=== PATIENT | female | born 1990 | race Caucasian/White ===

== ENCOUNTER 2017-11-20 17:31 | Emergency (ER) | payer OTHER ==
[~2017-11-20] VITALS: Ht 167.6 cm; Wt 97.2 kg
[~2017-11-20 17:31] MED LIST: ADVIL200 MG PO; BENTYL20 MG PO; BRINTELLIX10 MG PO; HYDROCODON-ACE1 EAC7 PO; IBUPROFEN800 MG PO; RITALIN10 MG PO; VALTREX1000 MG PO; ZYRTEC10 M3 PO
[2017-11-20 17:59] LABS: HEMATOCRIT 38.5 % (36.0-46.0); HEMOGLOBIN 13.3 G/DL (11.9-15.5); MCH 31.4 PG (29.0-34.0); MCHC 34.5 G/DL (30.0-36.0); PLATELET COUNT 334 K/uL (156-360); RBC DIS.WIDTH-CV 13.5 % (11.8-14.6); RBC DIS.WIDTH-SD 44.7 % (39-53); RED BLOOD COUNT 4.23 M/uL (3.80-5.20); WHITE BLOOD COUNT 10.7 K/uL (4.1-10.2)
[2017-11-20 18:20] LABS: TROP-I INTERPRETATION NEGATIVE; TROPONIN-I < 0.01 ng/mL (0.0-0.30)
[2017-11-20 18:45] LABS: CHLORIDE 109 mEq/L (99-109); SODIUM 141 mEq/L (136-147)
[2017-11-20 18:47] LABS: GLUCOSE 85 mg/dL (70-99)
[2017-11-20 18:51] LABS: CREATININE 0.8 mg/dL (0.6-1.3); GFR ESTIMATE (CALCULATED) > 59 mL/min/; UREA NITROGEN (BUN) 11 mg/dL (9-23)
[2017-11-20 18:55] LABS: QUANTITATIVE HCG < 4.0 MIU/ML
[2017-11-20 20:39] VITALS: BP 134/63
== END 2017-11-20 20:47 | disposition home or self-care (01) ==
LOC: EME 17:31 → TRA 17:31 → EME 20:47
DX: R00.2 Palpitations (principal); F17.200 Nicotine dependence, unspecified, uncomplicated; F32.9 Major depressive disorder, single episode, unspecified; F41.9 Anxiety disorder, unspecified; F90.9 Attention-deficit hyperactivity disorder, unspecified type; Z88.2 Allergy status to sulfonamides
CPT/HCPCS: 71046; 80048; 84484; 84702; 85027; 93005; 99281; 99284